=== PATIENT | female | born 1975 | race African-American/Black ===

== ENCOUNTER 2019-07-10 21:24 | Emergency (ER) | payer OTHER ==
[~2019-07-10] VITALS: Ht 162.6 cm; Wt 129.3 kg
[~2019-07-10 21:24] MED LIST: AMLODIPINE BESYL5 MG PO; CIPROFLOXACIN500 M1 PO; FLAGYL500 MG PO; HYDROCODONE-AP1 EAC6 PO; MAXZIDE-25 MG1 EACH PO; NOHOMEMEDICATIONS; NORCO 5-325 TA1 EACH PO; PROAIR HFA8.5 GM INH; XANAX 0.25 MG0.25 MG PO
[2019-07-10 21:45] LABS: ABSOLUTE NEUTROPHILS 5.7 thou/uL (1.4-8.2); BASOPHILS 1.2 % (0.0-2.0); EOSINOPHILS 4.6 % (0.0-3.0); HEMOGLOBIN 14.8 gm/dL (12.0-15.0); LYMPHOCYTES 31.7 % (24.0-44.0); MCH 31.7 pg (26.0-34.0); MCHC 33.6 g/dL (28.0-37.0); MCV 94.5 fL (80.0-100.0); MONOCYTES 5.5 % (1.0-8.0); PLATELET COUNT 270 thou/uL (150-400); RBC 4.66 mil/uL (4.20-5.00); RDW 14.2 % (10.5-14.5); WBC 10.1 thou/uL (4.0-11.0)
[2019-07-10 21:53] LABS: ANION GAP 10 mmol/L (7-16); BUN 10 mg/dL (7-18); CALCIUM 8.9 mg/dL (8.5-10.1); CHLORIDE 104 mmol/L (98-107); CO2 29 mmol/L (21-32); CREATININE 1.1 mg/dL (0.6-1.0); GLUCOSE 118 mg/dL (74-106); POTASSIUM 3.5 mmol/L (3.5-5.1); SODIUM 143 mmol/L (136-145)
[2019-07-10] MEDS ORDERED: XANAX 0.25 MG0.25 MG PO (21:54)
[2019-07-10] MEDS ORDERED: LASIX 40 MG TAB40 M2 PO (21:55)
[2019-07-10] MEDS ORDERED: POTASSIUM20 PO (21:56)
[2019-07-10 22:02] LABS: TROPONIN-I <0.06 ng/mL (<0.06)
[2019-07-10] MEDS ORDERED: NORCO 5-325 TA1 EAC1 PO (23:42)
[2019-07-10] MEDS ORDERED: TESSALON PERLE100 M1 PO (23:42)
[2019-07-11 00:15] VITALS: BP 166/91
--- NOTE | 2019-07-11 08:31 | EKG ---
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 : 1975 Requested By: Virgil Flowers Order Number: [id number] MD: Myron Cagle Measurements Intervals [place] Rate: 93 P: 61 NC: 165 QRS: 5 QRSD: 89 T: -8 QT: 358 QTc: 446 Interpretive Statements Sinus rhythm Right atrial abnormality Poor R wave progression Compared to ECG 01/02/2017 11:17:05 No significant change was found Electronically Signed On 07-11-2019 8:30:58 CDT by Myron Cagle [email or web address] <ELECTRONICALLY SIGNED> By: Myron Cagle MD, [facility] 07/11/19829 30 30 Myron Cagle MD, [facility] /EPI
== END 2019-07-11 00:15 | disposition home or self-care (01) ==
LOC: ER 21:24
PROVIDERS: Emergency Medicine
DX: J20.8 Acute bronchitis due to other specified organisms (principal); J45.909 Unspecified asthma, uncomplicated; F17.210 Nicotine dependence, cigarettes, uncomplicated; Z98.51 Tubal ligation status

== ENCOUNTER 2021-03-17 15:04 | Emergency (ER) | payer BC ==
[~2021-03-17] VITALS: Ht 162.6 cm; Wt 142.9 kg
[~2021-03-17 15:04] MED LIST changes: +LASIX 40 MG TAB40 M2 PO; +NORCO 5-325 TA1 EAC1 PO; +POTASSIUM20 PO; +TESSALON PERLE100 M1 PO
[2021-03-17 15:42] LABS: ABSOLUTE NEUTROPHILS 5.2 thou/uL (1.4-8.2); BASOPHILS 1.2 % (0.0-2.0); EOSINOPHILS 2.6 % (0.0-3.0); HEMATOCRIT 46.7 % (37.0-47.0); HEMOGLOBIN 15.8 gm/dL (12.0-15.0); LYMPHOCYTES 30.8 % (24.0-44.0); MCH 32.8 pg (26.0-34.0); MCHC 33.8 g/dL (28.0-37.0); MCV 97.1 fL (80.0-100.0); MONOCYTES 7.8 % (1.0-8.0); PLATELET COUNT 294 thou/uL (150-400); POLYS 57.6 % (36.0-66.0); RBC 4.81 mil/uL (4.20-5.00); RDW 13.8 % (10.5-14.5); WBC 9.1 thou/uL (4.0-11.0)
[2021-03-17 15:52] LABS: ANION GAP 4 mmol/L (7-16); BUN 11 mg/dL (7-18); CALCIUM 9.2 mg/dL (8.5-10.1); CHLORIDE 109 mmol/L (98-107); CO2 29 mmol/L (21-32); CREATININE 0.9 mg/dL (0.6-1.0); GLUCOSE 85 mg/dL (74-106); POTASSIUM 4.9 mmol/L (3.5-5.1); SODIUM 142 mmol/L (136-145)
[2021-03-17 16:03] LABS: ALBUMIN 3.2 g/dL (3.4-5.0); LIPASE 163 U/L (73-393); SGOT 23 U/L (15-37); SGPT 29 U/L (14-59); TOTAL BILIRUBIN 0.4 mg/dL (0.2-1.0); TOTAL PROTEIN 7.7 g/dL (6.4-8.2); TROPONIN-I <0.06 ng/mL (<0.06)
[2021-03-17] MEDS ORDERED: HYDROCHLOROTHIA25 M1 PO (20:37)
[2021-03-17 21:06] VITALS: BP 141/54
--- NOTE | 2021-03-18 09:31 | EKG ---
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
--- NOTE | 2021-03-18 09:31 | EKG ---
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 : 1975 Requested By: Satinder Oneil Order Number: [id number] MD: Myron Cagle Measurements Intervals [place] Rate: 95 P: 69 [place]: 161 QRS: 1 QRSD: 89 T: 12 QT: 347 QTc: 436 Interpretive Statements Sinus rhythm Poor R wave progression ST elevation, consider inferior injury Compared to ECG 03/17/2021 15:26:50 No significant changes Electronically Signed On 03-18-2021 9:31:39 CDT by Myron Cagle [email or web address] <ELECTRONICALLY SIGNED> By: Myron Cagle MD, [facility] 03/18/21 0931 1533 153 Myron Cagle MD, FACC /EPI
--- NOTE | 2021-03-18 09:32 | EKG ---
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 : 1975 Requested By: Satinder Oneil Order Number: [id number] MD: Myron Cagle Measurements Intervals [place] Rate: 96 P: 63 GA: 165 QRS: -12 QRSD: 90 T: 11 QT: 340 QTc: 430 Interpretive Statements Sinus rhythm Poor R wave progression Baseline wander in lead(s) V2 Compared to ECG 07/10/2019 21:31:07 No significant change was found Electronically Signed On 03-18-2021 9:32:49 CDT by Myron Cagle [email or web address] <ELECTRONICALLY SIGNED> By: Myron Cagle MD, [facility] 03/18/21 0932 1539 1539 Myron Cagle MD, FACC /EPI
--- NOTE | 2021-03-18 09:36 | EKG ---
[place] [address] [facility] [place] [address] ELECTROCARDIOGRAM REPORT Name: CHELA SNELL [facility] #: [facility] [id number] Admission: 03/17/21 Attend Phys: Discharge: 03/17/21 Date of : [birth year] Report #: [id number] 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
== END 2021-03-17 21:00 | disposition home or self-care (01) ==
LOC: ER 15:04
PROVIDERS: Emergency Medicine
DX: R07.89 Other chest pain (principal); R42 Dizziness and giddiness; J45.909 Unspecified asthma, uncomplicated; F17.210 Nicotine dependence, cigarettes, uncomplicated; Z79.899 Other long term (current) drug therapy; Z98.51 Tubal ligation status; Z90.89 Acquired absence of other organs